=== PATIENT | female | born 1965 | race Asian ===

== ENCOUNTER 2018-01-17 12:39 | Day surgery (SDC) | payer OTHER ==
[~2018-01-17 12:39] MED LIST: MARCAINE 0.5% INFILTRATI ONE; XYLOCAINE 1% 20 mL INFILTRATI ONE
[2018-01-17 14:38] VITALS: BP 126/77
--- NOTE | 2018-01-17 18:37 | Operative Report ---
PREOPERATIVE DIAGNOSIS: Mass, right subcostal area. POSTOPERATIVE DIAGNOSES: Mass, right subcostal area, most probably inclusion cyst. SURGERY: Removal of a mass, right subcostal area for about 2 x 2 cm. ANESTHESIA: Local used for that purpose about 5 mL of 1% Xylocaine, 0.25% Marcaine half and half. FINDINGS: The patient had a mass that looks cystic to me. After removing it looks like an inclusion cyst, as mentioned above it is about 2 x 2 cm located in the subcutaneous tissue on the right costal area. DESCRIPTION OF PROCEDURE: With the patient in supine position, prepped and draped in the usual fashion. I infiltrated the area with the above-mentioned anesthetic and then a spindle-shaped incision was performed, deep subcutaneous tissue going around the mass in the usual fashion to healthy looking tissue. After that maneuvering while I was satisfied, we closed the wound with multiple interrupted stitches of 3-0 Vicryl and the skin with Steri-Strips. We left a bandage of a 2 x 2 and Tegaderm. The patient was then transferred to the outpatient in the usual fashion. I told her to take extra strength Tylenol for pain, to call me if she has any question, to see me in about 10 days. JOB# [id number] HERMINIO/MEREDITH
--- NOTE | 2018-01-17 20:12 | Discharge Summary ---
FINAL DIAGNOSIS: Inclusion cyst, costal area on the right side. HOSPITAL COURSE: This patient was seen in my office about 2 weeks ago because of the above. This is a mass that measures to me about 2 x 2 x 2 cm, that is fairly moderately painful. She told me she has been having this for about 2-3 years now. So she underwent this under local anesthesia. She was discharged home to be seen in my office in 10 days and told to take extra strength Tylenol for pain, to call me if she has any problem otherwise. JOB# [id number] HERMINIO/MEREDITH
== END 2018-01-17 12:40 | disposition home or self-care (01) ==
LOC: OR 12:39
PROVIDERS: ATTEND Surgery
DX: L72.0 Epidermal cyst (principal); I10 Essential (primary) hypertension
CPT/HCPCS: 88304; 88307